=== PATIENT | male | born 1980 | race Caucasian/White ===

== ENCOUNTER 2017-08-31 21:10 | Emergency (ER) | payer SELFPAY ==
[~2017-08-31] VITALS: Ht 180.3 cm; Wt 120.8 kg
[2017-08-31 21:38] LABS: ADD MIUA? YES; BILIRUBIN NEGATIVE; BLOOD NEGATIVE; COLOR YELLOW ((YELLOW)); GLUCOSE (STRIP) NEGATIVE; KETONES 5; LEUKOCYTES NEGATIVE; NITRITE NEGATIVE; PROTEIN (STRIP) 30; SPECIFIC GRAVITY 1.034 (1.000-1.030)
[2017-08-31 22:00] LABS: EPITHELIAL CELLS RARE /HPF; RED BLOOD CELLS 0-5 /HPF (0-5); WHITE BLOOD CELLS 0-5 /HPF (0-5)
[2017-08-31 22:01] LABS: AMORPHOUS URATES CRYSTALS 2+; BACTERIA 1+ /HPF; CASTS NONE SEEN /LPF; CRYSTALS PRESENT; MUCUS RARE /LPF; UCUL ADDED? NO
[2017-08-31 22:03] LABS: HEMATOCRIT 41.7 % (38.0-50.0); MCH 34.4 PG (29.0-34.0); MCHC 34.5 G/DL (30.0-36.0); MCV 99.5 FL (86-99); MEAN PLAT.VOLUME 10.1 uM^3 (9.0-12.4); PLATELET COUNT 243 K/uL (156-360); RBC DIS.WIDTH-CV 12.7 % (11.8-14.6); RBC DIS.WIDTH-SD 46.5 % (39-53); RED BLOOD COUNT 4.19 M/uL (4.00-5.50); WHITE BLOOD COUNT 11.4 K/uL (4.1-10.2)
[2017-08-31 22:11] LABS: CHLORIDE 105 mEq/L (99-109); POTASSIUM 3.7 mEq/L (3.7-5.4); SODIUM 139 mEq/L (136-147)
[2017-08-31 22:14] LABS: GLUCOSE 162 mg/dL (70-99)
[2017-08-31 22:15] LABS: ANION GAP 11 MEQ/L (2-14); TOTAL BILIRUBIN 0.5 mg/dL (0.0-1.0)
[2017-08-31 22:17] LABS: ALKALINE PHOSPHATASE 111 IU/L (3-129); GFR ESTIMATE (CALCULATED) > 59 mL/min/
[2017-08-31 22:18] LABS: UREA NITROGEN (BUN) 18 mg/dL (9-23)
[2017-08-31 22:26] LABS: LIPASE 20 U/L (1.0-51.0)
[2017-08-31] MEDS ORDERED: LEVAQUIN500 MG PO (23:52)
[2017-08-31] MEDS ORDERED: PROAIR HFA8.5 GM IH (23:52)
[2017-08-31] MEDS ORDERED: ROBITUSSIN AC,T10 ML PO (23:52)
[2017-09-01 00:15] VITALS: BP 105/77
== END 2017-09-01 00:17 | disposition home or self-care (01) ==
LOC: EME 21:10
DX: J18.9 Pneumonia, unspecified organism (principal); R10.9 Unspecified abdominal pain; R11.0 Nausea; Z90.49 Acquired absence of other specified parts of digestive tract; Z87.891 Personal history of nicotine dependence
CPT/HCPCS: 71020; 74176; 80053; 81003; 83690; 85027; 94640; 99281; 99284